=== PATIENT | female | born 1955 | race Caucasian/White ===

== ENCOUNTER → 2017-04-28 | Outpatient (CLI) | payer MEDICARE ==
[2017-04-28 15:18] VITALS: BP 130/77; PULSE 95; TEMP 98.4; BMI 32.8
--- NOTE | 2017-04-28 15:33 | P.HPBAR ---
Bariatric H&P - History & Physicial H&P Date: 04/28/17 History & Physicial: Visit/CC: lap band fill Patient initial contact: Initial weight: 214.7 kg Initial weight in pounds: 473.33 Height: 5 ft 4 in Initial BMI: 81.2 Last weight: Current weight: 86.818 kg Current weight in pounds: 191.40 Current BMI: 32.8 [place] body weight (based on NIH guidelines): 54.431 kg Excess body weight loss: 79.7% The patient is a 61 year-old F who presents for Bariatric Assessment. Patient presents today for lab band follow up. He has not been seen several years. He is requesting a fill. Past Medical History Past Medical History: GERD/Reflux, Hypertension, Osteoarthritis (OA) History of Any Multi-Drug Resistant Organisms: None Reported Past Surgical History: Back Surgery, Bariatric Surgery, Section, Tonsillectomy, Tubal Ligation Additional Past Surgical History / Comment(s): spinal fusion x 2, laminectomy, lap band, sheryl cataracts Past Anesthesia/Blood Transfusion Reactions: Family History of Problems w/ Anesthesia Additional Past Anesthesia/Blood Transfusion Reaction / Comm: daughter- PONV Past Psychological History: No Psychological Hx Reported Smoking Status: Former smoker Past Alcohol Use History: Occasional Additional Past Alcohol Use History / Comment(s): quit smoking 25 yrs ago, smoked for 10-15 yrs-1PPD Past Drug Use History: None Reported - Past Family History Mother Family Medical History: No Reported History Surgical - Exam Vital Signs Temp Pulse BP 98.4 F 95 130/77 04/28/17 15:16 04/28/17 15:16 04/28/17 15:16 - General well developed, no distress - Abdomen Abdomen: soft, non tender Bariatric Assessment & Plan Plan: Patient LAP-BAND adjustment. He had 1 mL added to his band. He currently has 3 mL in the band. He'll follow-up in Bariatric Checklist Checklist: Plan: Checklist: EGD: 1. Hiatal hernia: 2. H. Pylori: HgbA1c: Vitamin D: Smoking: Former smoker Primary care physician referral: dr tuttle Psychiatry clearance: Cardiology clearance: Sleep study: Diet journal: VTE risk score: VTE risk level: Rehab needs at discharge:
--- NOTE | 2017-04-28 15:34 | P.HPBAR ---
Bariatric H&P - History & Physicial H&P Date: 04/28/17 History & Physicial: Visit/CC: lap band fill Patient initial contact: Initial weight: 214.7 kg Initial weight in pounds: 473.33 Height: 5 ft 4 in Initial BMI: 81.2 Last weight: Current weight: 86.818 kg Current weight in pounds: 191.40 Current BMI: 32.8 [place] body weight (based on NIH guidelines): 54.431 kg Excess body weight loss: 79.7% The patient is a 61 year-old F who presents for Bariatric Assessment. Patient presents today for lab band follow up. He has not been seen several years. He is requesting a fill. Past Medical History Past Medical History: GERD/Reflux, Hypertension, Osteoarthritis (OA) History of Any Multi-Drug Resistant Organisms: None Reported Past Surgical History: Back Surgery, Bariatric Surgery, Section, Tonsillectomy, Tubal Ligation Additional Past Surgical History / Comment(s): spinal fusion x 2, laminectomy, lap band, sheryl cataracts Past Anesthesia/Blood Transfusion Reactions: Family History of Problems w/ Anesthesia Additional Past Anesthesia/Blood Transfusion Reaction / Comm: daughter- PONV Past Psychological History: No Psychological Hx Reported Smoking Status: Former smoker Past Alcohol Use History: Occasional Additional Past Alcohol Use History / Comment(s): quit smoking 25 yrs ago, smoked for 10-15 yrs-1PPD Past Drug Use History: None Reported - Past Family History Mother Family Medical History: No Reported History Surgical - Exam Vital Signs Temp Pulse BP 98.4 F 95 130/77 04/28/17 15:16 04/28/17 15:16 04/28/17 15:16 Bariatric Assessment & Plan Plan: Patient LAP-BAND adjustment. He had 2 mL added to her band. She'll follow-up in one month. Bariatric Checklist Checklist: Plan: Checklist: EGD: 1. Hiatal hernia: 2. H. Pylori: HgbA1c: Vitamin D: Smoking: Former smoker Primary care physician referral: dr tuttle Psychiatry clearance: Cardiology clearance: Sleep study: Diet journal: VTE risk score: VTE risk level: Rehab needs at discharge:
== END ==
LOC: BARWHC3 14:26
PROVIDERS: ATTEND Surgery
DX: Z48.815 Encounter for surgical aftercare following surgery on the digestive system (principal); Z98.84 Bariatric surgery status; F17.200 Nicotine dependence, unspecified, uncomplicated
CPT/HCPCS: 99212

== ENCOUNTER → 2021-03-26 | Outpatient (CLI) | payer MEDICARE ==
--- NOTE | 2021-03-26 14:44 | FL ---
EXAMINATION TYPE: FL barium swallow DATE OF EXAM: 03/26/2021 COMPARISON: None HISTORY: Dysphagia TECHNIQUE: Single contrast thin barium with fluoroscopic observation FINDINGS: Fluoroscopy time: 12 seconds Images: 39 Real-time observation was performed. LAP-BAND position appears normal. Contrast passes through the la p band without hesitancy. There is moderate narrowing remaining within the region of the lap band. No extravasation is evident. No prolapse is evident. IMPRESSION: 1. Normal appearance of the lap band with moderate narrowing without hesitancy contrast passing thro ugh.
== END | disposition home or self-care (01) ==
LOC: RADFLMAIN 13:50
PROVIDERS: ATTEND Surgery
DX: R13.10 Dysphagia, unspecified (principal)
CPT/HCPCS: 74220

== ENCOUNTER → 2021-03-26 | Outpatient (CLI) | payer MEDICARE ==
[2021-03-26 13:24] VITALS: BP 144/76; PULSE 64; RESP 18; TEMP 97.8; BMI 31.7
--- NOTE | 2021-04-11 12:33 | P.HPBAR ---
Bariatric H&P - History & Physicial H&P Date: 03/26/21 History & Physicial: Visit/CC: follow up Patient initial contact: Initial weight: 214.7 kg Initial weight in pounds: 473.33 Height: 5 ft 4 in Initial BMI: 81.2 Last weight: Current weight: 83.915 kg Current weight in pounds: 185.00 Current BMI: 31.7 [place] body weight (based on NIH guidelines): 54.431 kg Excess body weight loss: 81.6% The patient is a 65 year-old F who presents for Bariatric Assessment. Patient presents today for [place] follow-up. She's had spoken with GERD. Past Medical History Past Medical History: GERD/Reflux, Hypertension, Osteoarthritis (OA) History of Any Multi-Drug Resistant Organisms: None Reported Past Surgical History: Back Surgery, Bariatric Surgery, Section, Tonsillectomy, Tubal Ligation Additional Past Surgical History / Comment(s): spinal fusion x 2, laminectomy, lap band, sheryl cataracts Past Anesthesia/Blood Transfusion Reactions: Family History of Problems w/ Anesthesia Additional Past Anesthesia/Blood Transfusion Reaction / Comm: daughter- PONV Smoking Status: Former smoker - Past Family History Mother Family Medical History: No Reported History Surgical - Exam Vital Signs Temp Pulse Resp BP 97.8 F 64 18 144/76 03/26/21 13:18 03/26/21 13:18 03/26/21 13:18 03/26/21 13:18 - General well developed, well nourished, no distress - Eyes PERRL - ENT normal pinna - Neck no masses - Respiratory normal expansion - Cardiovascular Rhythm: regular - Abdomen Abdomen: soft, non tender Bariatric Assessment & Plan Plan: GERD. Patient was scheduled for esophagram upper GI. Bariatric Checklist Checklist: Plan: Checklist: EGD: 1. Hiatal hernia: 2. H. Pylori: HgbA1c: Vitamin D: Smoking: Former smoker Primary care physician referral: dr tuttle Psychiatry clearance: Cardiology clearance: Sleep study: Diet journal: VTE risk score: VTE risk level: Rehab needs at discharge:
== END ==
LOC: BARWHC3 12:36
PROVIDERS: ATTEND Surgery
DX: K21.9 Gastro-esophageal reflux disease without esophagitis (principal); I10 Essential (primary) hypertension; M19.90 Unspecified osteoarthritis, unspecified site; Z87.891 Personal history of nicotine dependence; Z79.899 Other long term (current) drug therapy; Z98.84 Bariatric surgery status
CPT/HCPCS: 99203

== ENCOUNTER → 2021-04-09 | Outpatient (CLI) | payer MEDICARE ==
[2021-04-09 13:21] VITALS: BP 144/78; PULSE 62; RESP 18; TEMP 98.5; BMI 32.1
--- NOTE | 2021-04-09 14:02 | P.HPBAR ---
Bariatric H&P - History & Physicial H&P Date: 04/09/21 History & Physicial: Visit/CC: follow up Patient initial contact: Initial weight: 214.7 kg Initial weight in pounds: 473.33 Height: 5 ft 4 in Initial BMI: 81.2 Last weight: Current weight: 84.958 kg Current weight in pounds: 187.30 Current BMI: 32.1 [place] body weight (based on NIH guidelines): 54.431 kg Excess body weight loss: 80.9% The patient is a 65 year-old F who presents for Bariatric Assessment. Patient presents today for bariatric follow-up. She's had some mild complaints of GERD. She's not sure if she needs an adjustment. Past Medical History Past Medical History: GERD/Reflux, Hypertension, Osteoarthritis (OA) History of Any Multi-Drug Resistant Organisms: None Reported Past Surgical History: Back Surgery, Bariatric Surgery, Section, Tonsillectomy, Tubal Ligation Additional Past Surgical History / Comment(s): spinal fusion x 2, laminectomy, lap band, sheryl cataracts Past Anesthesia/Blood Transfusion Reactions: Family History of Problems w/ Anesthesia Additional Past Anesthesia/Blood Transfusion Reaction / Comm: daughter- PONV Past Psychological History: Anxiety Smoking Status: Former smoker Past Alcohol Use History: Occasional Additional Past Alcohol Use History / Comment(s): quit smoking 25 yrs ago, smoked for 10-15 yrs-1PPD Past Drug Use History: Marijuana Additional Drug Use History / Comment(s): 03/26/21 - smokes marijuana at night to help with sleeping. - Past Family History Mother Family Medical History: No Reported History Surgical - Exam Vital Signs Temp Pulse Resp BP 98.5 F 62 18 144/78 04/09/21 13:19 04/09/21 13:19 04/09/21 13:19 04/09/21 13:19 - General well developed, well nourished, no distress - Eyes PERRL - ENT normal pinna - Neck no masses - Respiratory normal expansion - Cardiovascular Rhythm: regular - Abdomen Abdomen: soft, non tender Bariatric Assessment & Plan Plan: GERD. Patient will be observed. Her GERD is minimal. She will follow-up in 4 weeks. Her recent upper GI is normal. Bariatric Checklist Checklist: Plan: Checklist: EGD: 1. Hiatal hernia: 2. H. Pylori: HgbA1c: Vitamin D: Smoking: Former smoker Primary care physician referral: dr tuttle Psychiatry clearance: Cardiology clearance: Sleep study: Diet journal: VTE risk score: VTE risk level: Rehab needs at discharge:
== END ==
LOC: BARWHC3 13:01
PROVIDERS: ATTEND Surgery
DX: Z09 Encounter for follow-up examination after completed treatment for conditions other than malignant neoplasm (principal); K21.9 Gastro-esophageal reflux disease without esophagitis; I10 Essential (primary) hypertension; M19.90 Unspecified osteoarthritis, unspecified site; F41.9 Anxiety disorder, unspecified; Z87.891 Personal history of nicotine dependence; Z98.84 Bariatric surgery status
CPT/HCPCS: 99211

== ENCOUNTER → 2023-04-07 | Outpatient (CLI) | payer MEDICARE ==
[2023-04-07 13:11] VITALS: BP 138/72; PULSE 75; TEMP 98.3; BMI 30.5
--- NOTE | 2023-04-08 14:49 | P.HPBAR ---
Bariatric H&P - History & Physicial H&P Date: 04/07/23 History & Physicial: Visit/CC: lap band Patient initial contact: Initial weight: 214.7 kg Initial weight in pounds: 473.33 Height: 5 ft 4 in Initial BMI: 81.2 Last weight: Current weight: 80.739 kg Current weight in pounds: 178.00 Current BMI: 30.5 [place] body weight (based on NIH guidelines): 54.431 kg Excess body weight loss: 83.5% The patient is a 67 year-old F who presents for Bariatric Assessment. patient presents today for Lap-Band adjustment. She is requesting fluid to be added to her band. Past Medical History Past Medical History: GERD/Reflux, Hypertension, Osteoarthritis (OA) History of Any Multi-Drug Resistant Organisms: None Reported Past Surgical History: Back Surgery, Bariatric Surgery, Section, Tonsillectomy, Tubal Ligation Additional Past Surgical History / Comment(s): spinal fusion x 2, laminectomy, lap band, sheryl cataracts Past Anesthesia/Blood Transfusion Reactions: Family History of Problems w/ Anesthesia Additional Past Anesthesia/Blood Transfusion Reaction / Comm: daughter- PONV Past Psychological History: Anxiety Smoking Status: Former smoker Past Alcohol Use History: Occasional Additional Past Alcohol Use History / Comment(s): quit smoking 25 yrs ago, smoked for 10-15 yrs-1PPD Past Drug Use History: Marijuana Additional Drug Use History / Comment(s): 03/26/21 - smokes marijuana at night to help with sleeping. - Past Family History Mother Family Medical History: No Reported History Surgical - Exam Vital Signs Temp Pulse BP 98.3 F 75 138/72 04/07/23 13:08 04/07/23 13:08 04/07/23 13:08 - General well developed, well nourished, no distress - Eyes PERRL - ENT normal pinna, normal nares - Abdomen Abdomen: soft, non tender Bariatric Assessment & Plan Plan: Patient's Lap-Band was attempted to be adjusted. It appears that her Lap-Band port has not moved or rotated. The patient will need to have a new Lap-Band port placed for her Lap-Band port malfunction. Bariatric Checklist Checklist: Plan: Checklist: EGD: 1. Hiatal hernia: 2. H. Pylori: HgbA1c: Vitamin D: Smoking: Former smoker Primary care physician referral: dr tuttle Psychiatry clearance: Cardiology clearance: Sleep study: Diet journal: VTE risk score: VTE risk level: Rehab needs at discharge:
== END ==
LOC: BARWHC3 12:27
PROVIDERS: ATTEND Surgery
DX: K95.09 Other complications of gastric band procedure (principal); E66.01 Morbid (severe) obesity due to excess calories; K21.9 Gastro-esophageal reflux disease without esophagitis; I10 Essential (primary) hypertension; M19.90 Unspecified osteoarthritis, unspecified site; Z68.30 Body mass index [BMI] 30.0-30.9, adult; Z46.51 Encounter for fitting and adjustment of gastric lap band; Z87.891 Personal history of nicotine dependence
CPT/HCPCS: 99212

== ENCOUNTER 2023-05-19 05:51 | Day surgery (SDC) | payer MEDICARE ==
[2023-05-13 11:08] VITALS: BMI 30.7
[~2023-05-19 05:51] MED LIST: DEXAMETHASONE SOD PHOSPHATE 4 MG/ML 1 ML VIAL IV ONE; LACTATED RINGERS 1,000 ML IV SCH; ONDANSETRON 4 MG/2 ML VIAL IVP ONE
[2023-05-19] MEDS ORDERED: HYDROmorphone 0.5 MG/0.5 ML SYRINGE IVP PRN (07:00)
[2023-05-19] MEDS ORDERED: MIDAZOLAM 2 MG/2 ML VIAL IV PRN (07:00)
[2023-05-19] MEDS ORDERED: ROCURONIUM 10 MG/ML (5 ML VIAL) IV ONE (07:35)
[2023-05-19] MEDS ORDERED: LIDOCAINE 2% INJ 20 MG/ML (2 ML VIAL) ONE (07:35)
[2023-05-19] MEDS ORDERED: SUGAMMADEX SODIUM 200 MG/2 ML SDV IV ONE (07:35)
[2023-05-19] MEDS ORDERED: fentaNYL (PF) 50 MCG/ML 2 ML AMP ONE (07:35)
[2023-05-19] MEDS ORDERED: MIDAZOLAM 2 MG/2 ML VIAL ONE (07:35)
[2023-05-19] MEDS ORDERED: KETOROLAC 15 MG/ML 1 ML VIAL ONE (07:35)
[2023-05-19] MEDS ORDERED: PROPOFOL 10 MG/ML 20 ML VIAL IV ONE (07:35)
[2023-05-19] MEDS ORDERED: LIDOCAINE 4% LTA KIT (4 ML) TOPICAL ONE (07:35)
[2023-05-19] MEDS ORDERED: LIDOCAINE 0.5%-EPI 1:200,000 50 ML VIAL SQ ONE ×2 (08:06)
--- NOTE | 2023-05-19 08:32 | P.GSHP ---
History of Present Illness H&P Date: 05/19/23 Chief Complaint: Band port malfunction Is a 67-year-old female who presents today for LAP-BAND port placement. Patient has a LAP-BAND port which is unable to be flushed. Patient presents today for placement of LAP-BAND port. Past Medical History Past Medical History: GERD/Reflux, Hyperlipidemia, Hypertension, Osteoarthritis (OA) History of Any Multi-Drug Resistant Organisms: None Reported Past Surgical History: Back Surgery, Bariatric Surgery, Section, Tonsillectomy, Tubal Ligation Additional Past Surgical History / Comment(s): Spinal fusion X2, laminectomy, lap band, bilateral cataract surgery. Past Anesthesia/Blood Transfusion Reactions: No Reported Reaction Additional Past Anesthesia/Blood Transfusion Reaction / Comment(s): Daughter - PONV. Past Psychological History: Anxiety Smoking Status: Former smoker Past Alcohol Use History: Occasional Additional Past Alcohol Use History / Comment(s): Quit smoking 27 yrs ago, smoked for 10-15 yrs, 1ppd. Past Drug Use History: Marijuana Additional Drug Use History / Comment(s): Smokes Marijuana at night to help sleep. Aware no use 24 hrs prior to procedure. - Past Family History Mother Family Medical History: No Reported History Brother(s) Family Medical History: Cancer, Deep Vein Thrombosis (DVT) Additional Family Medical History / Comment(s): Blood cancer. Medications and Allergies Home Medications Medication Instructions Recorded Confirmed Type Labetalol [Trandate] 200 mg PO BID 11/24/15 05/19/23 History Pravastatin Sodium [Pravachol] 80 mg PO DAILY 11/24/15 05/19/23 History traMADol HCl [Ultram] 200 mg PO QAM 11/24/15 05/19/23 History [place] 650 mg PO DAILY 03/26/21 05/13/23 History Losartan [Cozaar] 50 mg PO QAM 03/26/21 05/19/23 History Turmeric Root Extract [Turmeric] 1,000 mg PO DAILY 03/26/21 05/13/23 History hydroCHLOROthiazide 12.5 mg PO DAILY 03/26/21 05/19/23 History [place]-3/Dha/Epa/Fish Oil [Fish Oil 1 each PO DAILY 04/07/23 05/13/23 History 1,000 mg Softgel] Vitamin C/Biotin [Hair, Skin and 1 tab PO DAILY 04/07/23 05/13/23 History Nails Chew] Omeprazole Magnesium [PriLOSEC OTC] 20 mg PO DAILY 05/13/23 05/19/23 History Stress Relief Supplement 1 tab PO DAILY 05/13/23 05/13/23 History Vitamin C (Unknown Dose) 1 tab PO DAILY 05/13/23 05/13/23 History Allergies Allergy/AdvReac Type Severity Reaction Status Date / Time No Known Allergies Allergy Verified 05/19/23 06:32 Surgical - Exam Vital Signs Temp Pulse Resp BP Pulse Ox 97.8 F 54 L 16 167/73 98 05/19/23 06:42 05/19/23 06:42 05/19/23 06:42 05/19/23 06:42 05/19/23 06:42 - General well developed, well nourished, no distress - Eyes PERRL - ENT normal pinna - Neck no masses - Respiratory normal expansion - Cardiovascular Rhythm: regular - Abdomen Abdomen: soft, non tender Assessment and Plan Assessment: LAP-BAND port function. Patient will undergo laparoscopic replacement of LAP- BAND port.
--- NOTE | 2023-05-19 08:34 | P.OP ---
Date of Procedure: 05/19/23 Preoperative Diagnosis: LAP-BAND port malfunction Postoperative Diagnosis: LAP-BAND port malfunction Procedure(s) Performed: Laparoscopic removal and replacement of LAP-BAND port Anesthesia: KIKO Surgeon: Diego Soto Estimated Blood Loss (ml): 5 Pathology: none sent Condition: stable Disposition: PACU Description of Procedure: The patient's placed on the operative table in the supine position. She received general trach tube in situ. Her abdomen was prepped and draped usual sterile fashion. An infraumbilical skin incision was made and then using a Ashley clamp the fascia was grasped. The Veress needles placed into the peritoneal cavity. Position of the Veress needle was confirmed with positive drop test. After adequate insufflation the 5 mm trochars placed. Next the camera was placed into the. Peritoneal Cavity. The LAP-BAND port was visualized in the left upper quadrant. The skin was incised LAP-BAND port. Then the LAP-BAND port was dissected free. The PEG tube had been broken. The LAP-BAND port was removed. Next, a 10 mm trochars placed in the right upper quadrant. And then the PEG tube was then brought up through the 10 mm trocar. The abdomen was desufflated. The skin was incised at the 10 mm trocar site. The fascia was exposed. And then the new LAP-BAND port was connected to the PEG tube and then the port was secured to the fascia using 0 Nurolon suture. The LAP-BAND port was then flushed with saline. 2 mL was placed into the LAP-BAND port. The skin was then closed interrupted 3-0 Monocryl suture. Dermabond dressing applied. Patient tolerated procedure well.
[2023-05-19 08:50] VITALS: TEMP 97
[2023-05-19] MEDS ORDERED: LACTATED RINGERS 1,000 ML IV ONE (09:19)
[2023-05-19 09:34] VITALS: PULSE 59; RESP 18
[2023-05-19 09:55] VITALS: BP 137/84
== END 2023-05-19 10:08 | disposition home or self-care (01) ==
LOC: OR 05:51
PROVIDERS: ATTEND Surgery
DX: K95.09 Other complications of gastric band procedure (principal); K21.9 Gastro-esophageal reflux disease without esophagitis; E78.5 Hyperlipidemia, unspecified; I10 Essential (primary) hypertension; M19.90 Unspecified osteoarthritis, unspecified site; F41.9 Anxiety disorder, unspecified; F12.90 Cannabis use, unspecified, uncomplicated; Z98.890 Other specified postprocedural states; Z87.891 Personal history of nicotine dependence; Z79.899 Other long term (current) drug therapy; Y83.8 Other surgical procedures as the cause of abnormal reaction of the patient, or of later complication, without mention of misadventure at the time of the procedure
CPT/HCPCS: 43659; J2250; J1100; J0690; J2405; J3010; J1885; J2704; J2001

== ENCOUNTER → 2023-05-26 | Outpatient (CLI) | payer MEDICARE ==
[2023-05-26 08:49] VITALS: BP 124/74; PULSE 60; TEMP 98; BMI 30.7
--- NOTE | 2023-05-26 17:41 | P.HPBAR ---
Bariatric H&P - History & Physicial H&P Date: 05/26/23 History & Physicial: Visit/CC: lap band Patient initial contact: Initial weight: 214.7 kg Initial weight in pounds: 473.33 Height: 5 ft 4 in Initial BMI: 81.2 Last weight: Current weight: 81.193 kg Current weight in pounds: 179.00 Current BMI: 30.7 [place] body weight (based on NIH guidelines): 54.431 kg Excess body weight loss: 83.3% The patient is a 67 year-old F who presents for Bariatric Assessment. Patient presents today for follow-up. She is undergoing recent removal and replacement of LAP-BAND port. She has no complaints of pain. She's had no dysphagia or GERD. Past Medical History Past Medical History: GERD/Reflux, Hyperlipidemia, Hypertension, Osteoarthritis (OA) History of Any Multi-Drug Resistant Organisms: None Reported Past Surgical History: Back Surgery, Bariatric Surgery, Section, Tonsillectomy, Tubal Ligation Additional Past Surgical History / Comment(s): Spinal fusion X2, laminectomy, lap band, bilateral cataract surgery. lap band port replaced 05/19/23 Past Anesthesia/Blood Transfusion Reactions: No Reported Reaction Additional Past Anesthesia/Blood Transfusion Reaction / Comm: Daughter - PONV. Past Psychological History: Anxiety Smoking Status: Former smoker Past Alcohol Use History: Occasional Additional Past Alcohol Use History / Comment(s): Quit smoking 27 yrs ago, smoked for 10-15 yrs, 1ppd. Past Drug Use History: Marijuana Additional Drug Use History / Comment(s): Smokes Marijuana at night to help sleep. Aware no use 24 hrs prior to procedure. - Past Family History Mother Family Medical History: No Reported History Brother(s) Family Medical History: Cancer, Deep Vein Thrombosis (DVT) Additional Family Medical History / Comment(s): Blood cancer. Surgical - Exam Vital Signs Temp Pulse BP 98.0 F 60 124/74 05/26/23 08:42 05/26/23 08:42 05/26/23 08:42 - General well developed, well nourished, no distress - Eyes PERRL - ENT normal pinna - Neck no masses - Respiratory normal expansion - Cardiovascular Rhythm: regular Bariatric Assessment & Plan Plan: Status post replacement of LAP-BAND port. Patient will be scheduled for follow- up in 2 weeks. She will have an adjustment at that time. Bariatric Checklist Checklist: Plan: Checklist: EGD: 1. Hiatal hernia: 2. H. Pylori: HgbA1c: Vitamin D: Smoking: Former smoker Primary care physician referral: dr tuttle Psychiatry clearance: Cardiology clearance: Sleep study: Diet journal: VTE risk score: VTE risk level: Rehab needs at discharge:
== END ==
LOC: BARWHC3 08:28
PROVIDERS: ATTEND Surgery
DX: E66.01 Morbid (severe) obesity due to excess calories (principal); K21.9 Gastro-esophageal reflux disease without esophagitis; I10 Essential (primary) hypertension; E78.5 Hyperlipidemia, unspecified; M19.90 Unspecified osteoarthritis, unspecified site; Z68.30 Body mass index [BMI] 30.0-30.9, adult; Z98.84 Bariatric surgery status; Z87.891 Personal history of nicotine dependence; Z79.899 Other long term (current) drug therapy
CPT/HCPCS: 99211

== ENCOUNTER → 2023-06-30 | Outpatient (CLI) | payer MEDICARE ==
[2023-06-30 11:03] VITALS: BP 120/73; PULSE 56; TEMP 97.6; BMI 30.2
--- NOTE | 2023-07-02 08:20 | P.HPBAR ---
Bariatric H&P - History & Physicial H&P Date: 06/30/23 History & Physicial: Visit/CC: lap band F/U Patient initial contact: Initial weight: 214.7 kg Initial weight in pounds: 473.33 Height: 5 ft 4 in Initial BMI: 81.2 Last weight: Current weight: 79.923 kg Current weight in pounds: 176.20 Current BMI: 30.2 [place] body weight (based on NIH guidelines): 54.431 kg Excess body weight loss: 84.0% The patient is a 67 year-old F who presents for Bariatric Assessment. Patient resents today for LAP-BAND follow-up. She's requesting have some fluid removed from her band. She has some complaints of dysphagia. Past Medical History Past Medical History: GERD/Reflux, Hyperlipidemia, Hypertension, Osteoarthritis (OA) History of Any Multi-Drug Resistant Organisms: None Reported Past Surgical History: Back Surgery, Bariatric Surgery, Section, Tonsillectomy, Tubal Ligation Additional Past Surgical History / Comment(s): Spinal fusion X2, laminectomy, lap band, bilateral cataract surgery. lap band port replaced 05/19/23 Past Anesthesia/Blood Transfusion Reactions: No Reported Reaction Additional Past Anesthesia/Blood Transfusion Reaction / Comm: Daughter - PONV. Smoking Status: Former smoker - Past Family History Brother(s) Family Medical History: Cancer, Deep Vein Thrombosis (DVT) Additional Family Medical History / Comment(s): Blood cancer. Surgical - Exam Vital Signs Temp Pulse BP 97.6 F 56 L 120/73 06/30/23 10:39 06/30/23 10:39 06/30/23 10:39 - General well developed, well nourished, no distress - Eyes PERRL - ENT normal pinna - Neck no masses - Respiratory normal expansion - Cardiovascular Rhythm: regular - Abdomen Abdomen: soft, non tender Bariatric Assessment & Plan Plan: Patient LAP-BAND was accessed. 1 mL removed from the band. She'll follow-up in 4 weeks. Bariatric Checklist Checklist: Plan: Checklist: EGD: 1. Hiatal hernia: 2. H. Pylori: HgbA1c: Vitamin D: Smoking: Former smoker Primary care physician referral: dr tuttle Psychiatry clearance: Cardiology clearance: Sleep study: Diet journal: VTE risk score: VTE risk level: Rehab needs at discharge:
== END ==
LOC: BARWHC3 10:24
PROVIDERS: ATTEND Surgery
DX: K21.9 Gastro-esophageal reflux disease without esophagitis (principal); E66.01 Morbid (severe) obesity due to excess calories; E78.5 Hyperlipidemia, unspecified; I10 Essential (primary) hypertension; M19.90 Unspecified osteoarthritis, unspecified site; Z46.51 Encounter for fitting and adjustment of gastric lap band; Z98.84 Bariatric surgery status; Z87.891 Personal history of nicotine dependence; Z68.30 Body mass index [BMI] 30.0-30.9, adult; Z79.899 Other long term (current) drug therapy
CPT/HCPCS: 99212